=== PATIENT | male | born 1980 | race Caucasian/White ===

== ENCOUNTER 2016-09-24 21:15 | Emergency (ER) | payer SELFPAY ==
--- NOTE | 2016-09-24 22:31 | EDM.PDOC ---
ED HPI LOWER BACK PAIN/INJURY - General Chief Complaint: Back Pain or Injury Stated Complaint: LOWER BACK HURTS Time Seen by Provider: 09/24/16 22:31 - History of Present Illness INITIAL COMMENTS - FREE TEXT/NARRATIVE: 35-year-old male presents emergency room with back pain. This started last evening the patient was working on his car and he had to move it higher and he thinks he twisted wrong. He denies any other trauma. He's been taking ibuprofen 800 mg 3 times a day and it is not helping too much. The patient does not have a prior history of back problems. He denies any loss of bowel or bladder control.. He has no pain down his legs. His pain is localized to his low back seems to be right worse than left. Sitting with his legs straight tends to aggravate this. Patient has not had any burning or frequency with urination no flank discomfort. He has not had any abdominal pain no nausea vomiting constipation or diarrhea. - Related Data Allergies/ADRs: Allergies Allergy/AdvReac Type Severity Reaction Status Date / Time codeine Allergy Rash Verified 09/24/16 21:55 latex Allergy Rash Verified 09/24/16 21:55 Home Meds: Home Meds . [No Known Home Meds] 09/24/16 [History] Past Medical History HEENT History: Reports: Impaired vision Other HEENT History: Glasses Gastrointestinal History: Reports: Hepatitis Other Gastrointestinal History: hep c Genitourinary History: Reports: Other (see below) Other Genitourinary History: UTI Psychiatric History: Reports: Anxiety - Infectious Disease History Infectious Disease History: Reports: Hepatitis C - Past Surgical History Other GI Surgeries/Procedures: surgery X 3 for anal fissures/fistulas Social & Family History - Family History Family Medical History: Noncontributory - Tobacco Use Smoking Status *Q: Unknown Ever Smoked Years of Tobacco use: 10 Month Tobacco Last Used: 2013 Second Hand Smoke Exposure: No - Recreational Drug Use Recreational Drug Use: No Drug Use in Last 12 Months: No Recreational Drug Type: Reports: Marijuana/Hashish ED ROS GENERAL - Review of Systems Review Of Systems: See Below Constitutional: Reports: no symptoms. Denies: fever, chills Respiratory: Reports: no symptoms Cardiovascular: Reports: No symptoms GI/Abdominal: Reports: No symptoms ED EXAM,LOWER BACK PAIN/INJURY - Physical Exam Exam: See Below Exam Limited By: No limitations General Appearance: alert, no apparent distress Head: atraumatic, normocephalic Neck: normal inspection, supple, non-tender, full range of motion. No: lymphadenopathy (L), lymphadenopathy (R), tender lateral, tender midline Respiratory/Chest: no respiratory distress, lungs clear, normal breath sounds Cardiovascular: regular rate, rhythm, no edema, no murmur GI/Abdominal: normal bowel sounds, soft, non tender, no organomegaly, no distention, no abnormal bruit, no mass Back Exam: normal inspection, muscle spasm (marked muscle spasm especially on the right.), paraspinal tenderness. No: CVA tenderness (L), CVA tenderness (R) , vertebral tenderness Extremities: normal inspection, no pedal edema, other (straight leg raises are negative except for localized back pain.) Course - Vital Signs Last Recorded V/S: Last Vital Signs Temp 36.8 C 09/24/16 21:56 Pulse 114 H 09/24/16 21:56 Resp 18 09/24/16 21:56 BP 148/109 H 09/24/16 21:56 Pulse Ox 100 09/24/16 21:56 - Re-Assessments/Exams Free Text/Narrative Re-Assessment/Exam: 09/24/16 23:16 with no history of trauma x-rays would be of minimal benefit I discussed this with the patient he is in agreement. The patient will be started on Flexeril and will continue his ibuprofen for short-term pain relief she'll be given a few [place]. Departure - Departure Time of Disposition: 23:05 Disposition: Home, Self-Care 01 Clinical Impression: Lumbosacral strain Referrals: PCP,None [Primary Care Provider] - Forms: ED Department Discharge Additional Instructions: Return to the emergency room with any questions or problems. You have been started on Flexeril, cyclobenzaprine this is a muscle relaxant # 15 take one 3 times a day for 2 days and then one in the evenings thereafter for one week. You have been given a few hydrocodone, this is for pain, take one every 6 hours as needed for pain you have been given #20. With both the hydrocodone and cyclobenzaprine allow 12 hours after using any one of these medications before driving or returning to work. Continue taking your ibuprofen. Push fluids and take the ibuprofen with food. The pain medications can cause constipation use stool softeners or MiraLAX to prevent this. Followup in the clinic if not improving or if having persistent problems. [id number]
== END 2016-09-24 23:16 | disposition home or self-care (01) ==
LOC: JD.ED 21:15
CPT/HCPCS: 99283

== ENCOUNTER 2016-09-26 14:24 | Emergency (ER) | payer SELFPAY ==
--- NOTE | 2016-09-26 15:16 | EDM.PDOC ---
ED HPI LOWER BACK PAIN/INJURY - General Chief Complaint: Back Pain or Injury Stated Complaint: BACK PAIN Time Seen by Provider: 09/26/16 14:37 Source of Information: Reports: Patient, RN notes reviewed - History of Present Illness INITIAL COMMENTS - FREE TEXT/NARRATIVE: 35-year-old male comes in with low back pain. He states he injured his low back 3 days ago aching a tire off of the vehicle. He was actually seen here in the ED by Dr. Berger, prescribed some hydrocodone, see that record for details. He comes in today stating that it's D2 elevated liver enzymes he cannot take acetaminophen or at least that is what has been recommended to him in the past. When asked the reason for her elevated enzymes he states he does have chronic hep C. He still is having a lot of discomfort in his low back. The pain is worse with motion. He is working light duty. At this time the pain does not radiate. He has had low back problems in the past but not this severe. There's been no fall or other injury. - Related Data Allergies/ADRs: Allergies Allergy/AdvReac Type Severity Reaction Status Date / Time acetaminophen [From Tylenol] Allergy Liver Verified 09/26/16 14:41 Problems codeine Allergy Rash Verified 09/26/16 14:41 latex Allergy Rash Verified 09/26/16 14:41 Home Meds: Home Meds Cyclobenzaprine [Flexeril] 10 mg PO TID PRN 09/26/16 [History] Ibuprofen [Motrin] 800 mg PO Q6H PRN 09/26/16 [History] oxyCODONE 5 mg PO Q8H PRN #10 tablet 09/26/16 [Rx] Past Medical History HEENT History: Reports: Impaired vision Other HEENT History: Glasses Gastrointestinal History: Reports: Hepatitis Other Gastrointestinal History: hep c Genitourinary History: Reports: Other (see below) Other Genitourinary History: UTI Musculoskeletal History: Reports: Back pain, chronic Psychiatric History: Reports: Anxiety - Infectious Disease History Infectious Disease History: Reports: Hepatitis C - Past Surgical History Other GI Surgeries/Procedures: surgery X 3 for anal fissures/fistulas Social & Family History - Family History Family Medical History: Noncontributory - Tobacco Use Smoking Status *Q: Never Smoker Years of Tobacco use: 10 Month Tobacco Last Used: 2013 Second Hand Smoke Exposure: No - Caffeine Use Caffeine Use: Reports: Coffee - Recreational Drug Use Recreational Drug Use: No Drug Use in Last 12 Months: No Recreational Drug Type: Reports: Marijuana/Hashish ED ROS GENERAL - Review of Systems Review Of Systems: See Below Constitutional: Denies: fever, chills HEENT: Reports: No symptoms Respiratory: Denies: shortness of breath Cardiovascular: Denies: Chest pain GI/Abdominal: Denies: Abdominal pain, Nausea, Vomiting : Reports: no symptoms Musculoskeletal: Reports: back pain (low back). Denies: leg pain, joint pain Skin: Reports: no symptoms Neurological: Denies: numbness, tingling ED EXAM,LOWER BACK PAIN/INJURY - Physical Exam Exam: See Below General Appearance: alert, moderate distress Throat/Mouth: Normal inspection Head: atraumatic. No: facial swelling Neck: supple Respiratory/Chest: no respiratory distress, lungs clear, normal breath sounds Cardiovascular: regular rate, rhythm Back Exam: paraspinal tenderness (right low back). No: vertebral tenderness Extremities: normal inspection, normal range of motion Neurological: alert, oriented x 3, other (straight leg raising is increased pain in the right low back but does not radiate pain into the leg) Skin Exam: Warm, Dry, Normal color Course - Vital Signs Last Recorded V/S: Last Vital Signs Temp 98.9 F 09/26/16 14:30 Pulse 95 09/26/16 14:30 Resp 18 09/26/16 14:30 BP 154/99 H 09/26/16 14:30 Pulse Ox 98 09/26/16 14:30 Departure - Departure Time of Disposition: 15:14 Disposition: Home, Self-Care 01 Condition: fair Clinical Impression: Low back strain Qualifiers: Encounter type: initial encounter Qualified Code(s): S39.012A - Strain of muscle, fascia and tendon of lower back, initial encounter Prescriptions: oxyCODONE 5 mg PO Q8H PRN #10 tablet PRN Reason: Pain Instructions: Low Back Strain With Rehab-SportsMed Referrals: PCP,None [Primary Care Provider] - Forms: ED Department Discharge Additional Instructions: rest back, no heavy lifting until her pain has resolved, alternate ice and heat as needed, continue muscle relaxant as prescribed, oxycodone at night if needed for severe pain to help you rest, he may take a limited dosage during the day if needed for severe pain, do not drive when taking oxycodone, followup with your regular medical provider if not much better within 3-5 days as expected
== END 2016-09-26 15:37 | disposition home or self-care (01) ==
LOC: JD.ED 14:24
CPT/HCPCS: 99283